=== PATIENT | female | born 1980 | race African-American/Black ===

== ENCOUNTER 2018-02-20 12:09 | Emergency (ER) | payer OTHER ==
[~2018-02-20] VITALS: Ht 162.6 cm; Wt 113.4 kg
[2018-02-20] MEDS ORDERED: PROAIR HFA8.5 GM INH (12:54)
[2018-02-20] MEDS ORDERED: TESSALON PERLE100 MG PO (12:54)
[2018-02-20] MEDS ORDERED: ZPAK PO (12:54)
[2018-02-20] MEDS ORDERED: MEDROLDOSEPACK PO (12:54)
[2018-02-20] MEDS ORDERED: PROMETHAZINE V473 ML PO (12:54)
[2018-02-20 13:07] VITALS: BP 187/115
== END 2018-02-20 13:07 | disposition home or self-care (01) ==
LOC: M.ERS 12:09
DX: J20.9 Acute bronchitis, unspecified (principal); F17.210 Nicotine dependence, cigarettes, uncomplicated; Z90.49 Acquired absence of other specified parts of digestive tract

== ENCOUNTER 2018-10-29 11:02 | Emergency (ER) | payer OTHER ==
[~2018-10-29] VITALS: Ht 162.6 cm; Wt 136.1 kg
[~2018-10-29 11:02] MED LIST: MEDROLDOSEPACK PO; PROAIR HFA8.5 GM INH; PROMETHAZINE V473 ML PO; TESSALON PERLE100 MG PO; ZPAK PO
[2018-10-29 11:45] LABS: URINE BILIRUBIN NEGATIVE (Negative); URINE BLOOD NEGATIVE (Negative); URINE CLARITY CLEAR; URINE COLOR YELLOW; URINE GLUCOSE-RANDOM NEGATIVE (Negative); URINE KETONES NEGATIVE (Negative); URINE LEUKOCYTES-REFLEX NEGATIVE (Negative); URINE NITRITE-REFLEX NEGATIVE (Negative); URINE PROTEIN NEGATIVE (Negative); URINE UROBILINOGEN 0.2 E.U./dl (0.2-1.0)
[2018-10-29 11:49] LABS: ABSOLUTE BASOPHILS 0.1 thou/uL (0.0-0.2); ABSOLUTE EOSINOPHILS 0.2 thou/uL (0.0-0.7); ABSOLUTE MONOCYTES 0.5 thou/uL (0.0-1.2); ABSOLUTE NEUTROPHILS 6.5 thou/uL (1.6-8.1); BASOPHILS 1.2 %; EOSINOPHILS 2.5 %; HEMATOCRIT 45.4 % (37.0-47.0); HEMOGLOBIN 14.6 gm/dL (12.0-15.0); LYMPHOCYTES 21.7 %; MCH 28.8 pg (26.0-34.0); MCHC 32.1 g/dL (28.0-37.0); MCV 89.7 fL (80.0-100.0); MONOCYTES 5.3 %; NUCLEATED RBCS 0 /100WBC; PLATELET COUNT* 322 thou/uL (150-400); POLYS 69.3 %; RBC 5.06 mil/uL (4.20-5.00); RDW-CV 15.1 % (10.5-14.5); WBC 9.3 thou/uL (4.0-11.0)
[2018-10-29 11:59] LABS: ANION GAP 10 mmol/L (7-16); BUN 6 mg/dL (7-18); CALCIUM 8.7 mg/dL (8.5-10.1); CHLORIDE 104 mmol/L (98-107); CO2 24 mmol/L (21-32); CREATININE 0.7 mg/dL (0.6-1.3); GLUCOSE 105 mg/dL (70-99); POTASSIUM 4.1 mmol/L (3.5-5.1); SODIUM 138 mmol/L (136-145)
[2018-10-29 12:12] LABS: ALBUMIN 3.5 g/dL (3.4-5.0); ALKALINE PHOSPHATASE 78 U/L (46-116); LIPASE 109 U/L (73-393); SGOT 21 U/L (15-37); SGPT 31 U/L (30-65); TOTAL BILIRUBIN 0.4 mg/dL (<0.1-1.0); TOTAL PROTEIN 7.4 g/dL (6.4-8.2); TROPONIN-I LEVEL <0.06 ng/mL (<0.06)
[2018-10-29 12:39] LABS: AMP/METHAMP Negative (Negative); BARBITURATES Negative (Negative); BENZODIAZEPINES Negative (Negative); COCAINE Negative (Negative); METHADONE Negative (Negative); OPIATES Negative (Negative); PCP Negative (Negative); THC POSITIVE (Negative)
[2018-10-29] MEDS ORDERED: ONDANSETRON HCL4 M2 PO ×5 (12:52→13:33)
[2018-10-29] MEDS ORDERED: NABUMETONE 750750 M1 PO ×5 (12:52→13:33)
[2018-10-29 13:49] VITALS: BP 149/85
--- NOTE | 2018-10-29 16:01 | EKG ---
[place] [address] ELECTROCARDIOGRAM REPORT Name: JOLENE BAUGH Room: [facility]#: [id number] Admission: 10/29/18 Attend Phys: Discharge: 10/29/18 Date of : 82 Report #: [id number] THIS REPORT FOR: //name// [facility] ED Test Date: 2018-10-29 Test Time: 11:45:05 Pat Name: JOLENE BAUGH Department: Room: Gender: F [employer]: ANJEL : 1980 Requested By: Crystal Vidal Order Number: [id number] MD: Russell Elliott Measurements Intervals [place] Rate: 59 P: 5 MN: 153 QRS: -11 QRSD: 90 T: 32 QT: 440 QTc: 436 Interpretive Statements Sinus rhythm Compared to ECG 02/25/2017 12:01:37 No significant changes Electronically Signed On 10-29-2018 16:00:58 CDT by Russell Elliott [email or web address] <ELECTRONICALLY SIGNED> By: Russell Elliott MD, [facility] 10/29/18 1600 1145 1145 Russell Elliott MD, FACC /EPI
== END 2018-10-29 13:50 | disposition home or self-care (01) ==
LOC: M.ERS 11:02
PROVIDERS: Nurse Practitioner Family
DX: N83.202 Unspecified ovarian cyst, left side (principal); R11.2 Nausea with vomiting, unspecified; Z90.49 Acquired absence of other specified parts of digestive tract